=== PATIENT | female | born 1945 | race Caucasian/White ===

== ENCOUNTER 2017-02-06 12:14 | Emergency (ER) | payer OTHER ==
[2017-02-06 14:27] VITALS: BP 154/74
== END 2017-02-06 13:35 | disposition home or self-care (01) ==
LOC: ED 12:14
DX: I10 Essential (primary) hypertension (principal); Z88.8 Allergy status to other drugs, medicaments and biological substances

== ENCOUNTER 2017-08-08 09:30 | Emergency (ER) | payer OTHER, MEDICAID ==
[~2017-08-08] VITALS: Ht 152.4 cm; Wt 64.9 kg
[2017-08-08 09:37] VITALS: BP 137/80; Ht 152.4 cm; Wt 64.9 kg
== END 2017-08-08 11:51 | disposition home or self-care (01) ==
LOC: ED 09:30
DX: B34.9 Viral infection, unspecified (principal); R07.89 Other chest pain; I10 Essential (primary) hypertension; E78.00 Pure hypercholesterolemia, unspecified; Z88.8 Allergy status to other drugs, medicaments and biological substances